=== PATIENT | male | born 1980 | race Hispanic/Latino ===

== ENCOUNTER 2018-08-04 22:50 | Emergency (ER) | payer SELFPAY ==
--- NOTE | 2018-08-05 00:21 | ED PDOC ---
HPI: General Adult Time Seen by Provider: 08/04/18 23:05 Chief Complaint (Nursing): Medical Clearance Chief Complaint (Provider): Medical Clearance History Per: Patient Additional Complaint(s): Nathaniel Hensley, a 38 year old male with past medical history of hypertension, sleep apnea and chronic back pain, was brought into the emergency department via police for medical clearance. Patient was caught trying to break into a garage and upon laying on the ground, stopped movement. He admitted to using meth yesterday but will not answer any more questions. Past Medical History Reviewed: Historical Data, Nursing Documentation, Vital Signs Vital Signs: Last Vital Signs Temp 98.2 F 08/04/18 22:52 Pulse 120 H 08/04/18 22:52 Resp 20 08/04/18 22:52 BP 177/93 H 08/04/18 22:52 Pulse Ox 99 08/04/18 22:52 - Medical History PMH: HTN, Chronic Pain (back from falling from scaffold) Other PMH: sleep apnea - Surgical History Surgical History: Back Surgery - Family History Family History: States: Unknown Family Hx - Social History Current smoker - smoking cessation education provided: No Alcohol: None Drugs: Denies - Allergies Allergies/Adverse Reactions: Allergies Allergy/AdvReac Type Severity Reaction Status Date / Time Unobtainable Allergy Verified 08/04/18 23:20 Review of Systems ROS Statement: Except As Marked, All Systems Reviewed And Found Negative Physical Exam - Reviewed Nursing Documentation Reviewed: Yes Vital Signs Reviewed: Yes - Physical Exam Appears: Positive for: Well, Non-toxic, No Acute Distress Head Exam: Positive for: ATRAUMATIC, NORMAL INSPECTION, NORMOCEPHALIC Skin: Positive for: Diaphoresis Neck: Positive for: Normal Cardiovascular/Chest: Positive for: Regular Rate, Rhythm Respiratory: Positive for: Normal Breath Sounds. Negative for: Respiratory Distress Gastrointestinal/Abdominal: Positive for: Normal Exam, Soft Comments: obese, jolting movement - Laboratory Results Result Diagrams: 08/05/18 00:28 08/05/18 00:28 - ECG O2 Sat by Pulse Oximetry: 99 (RA) Pulse Ox Interpretation: Normal Medical Decision Making Medical Decision Making: Time: 23:18 Initial Impression: sent for medical clearance pt has no complaints Initial Plan: --EKG --Acetaminophen stat --Alcohol serum --CMP --Drug screen --Salicylate --CBC w/differential --Glucose --urinalysis - medically cleared for criris eval. pulse improved/ now in upper 90s. Time: 3:06 - seen by elliot hernandez for discharge, dx adjustment disorder as per Dr. Darvin robles Time: 3:49 -Utox came back positive for marijuanaa and amph. counseled pt on stopping drugs. pt stable for dc. stable gait prior ot dc. Scribe Attestation: Documented by Karen Miramontes, acting as a scribe for Jesus Otero MD. Provider Scribe Attestation: All medical record entries made by the Scribe were at my direction and personally dictated by me. I have reviewed the chart and agree that the record accurately reflects my personal performance of the history, physical exam, medical decision making, and the department course for this patient. I have also personally directed, reviewed, and agree with the discharge instructions and disposition. Disposition - Clinical Impression Clinical Impression: Substance abuse, Adjustment disorder - Patient ED Disposition Is Patient to be Admitted: No Doctor Will See Patient In The: Hospital Counseled Patient/Family Regarding: Need For Followup - Disposition Disposition: Discharged/Transfer to Law Enforcement Disposition Time: 03:06 Condition: IMPROVED Additional Instructions: follow up with your doctor return to ED with any worsening or concerning symptoms you are medically and psychiatrically cleared for incarceration Instructions: Adjustment Disorder, Drug Abuse and Drug Addiction (DC), Marijuana Use and Addiction (DC) Forms: Barcoding (Tanzanian)
[2018-08-05 00:41] LABS: ACETAMINOPHEN < 10.0 ug/ml (10.0-30.0); SALICYLATE < 1.0 mg/dl
[2018-08-05 00:43] LABS: BASO # 0.1 K/uL (0.0-0.2); BASO % 0.5 % (0.0-2.0); EOS # 0.1 K/uL (0.0-0.7); EOS % 0.5 % (0.0-4.0); HEMOGLOBIN 16.1 g/dL (12.0-18.0); LYMPH # 2.4 K/uL (1.0-4.3); LYMPH % 21.9 % (20.0-40.0); MEAN CELL VOLUME 89.3 fl (80.0-94.0); MEAN CORPUSCULAR HGB CONC 33.6 g/dL (33.0-37.0); MEAN PLATELET VOLUME 10.4 fl (7.2-11.7); MONO # 0.6 K/uL (0.0-0.8); MONO % 5.8 % (0.0-10.0); NEUT % 71.3 % (50.0-75.0); NRBC % 0.1 % (0.0-0.0); RBC 5.36 Mil/uL (4.40-5.90); RED CELL DISTRIBUTION WIDTH 13.7 % (11.5-14.5); WHITE BLOOD COUNT 11.2 K/uL (4.8-10.8)
[2018-08-05 00:45] LABS: ALB/GLOB RATIO 1.3 (1.0-2.1); ALBUMIN 4.6 g/dL (3.5-5.0); ALT/SGPT 71 U/L (21-72); AST/SGOT 49 U/L (17-59); BLOOD UREA NITROGEN 11 mg/dl (9-20); CALCIUM 9.4 mg/dL (8.4-10.2); GFR NON-AFRICAN AMERICAN > 60
[2018-08-05] MEDS ORDERED: Potassium Chloride 20 mEq ER Tab PO ONE ×2 (01:14→01:20)
[2018-08-05] MEDS ORDERED: Sodium Chloride 0.9% 1,000 ML IV STA (01:41)
[2018-08-05 03:47] LABS: BARBITURATES, UR NEGATIVE (NEGATIVE); BENZODIAZEPINES, UR NEGATIVE (NEGATIVE); OPIATES, UR NEGATIVE (NEGATIVE); PHENCYCLIDINE, UR NEGATIVE (NEGATIVE)
[2018-08-05 04:03] LABS: SQUAMOUS EPITHIAL < 1 /hpf (0-5); URINE BACTERIA RARE (<OCC); URINE BILIRUBIN NEGATIVE (NEGATIVE); URINE BLOOD NEGATIVE (NEGATIVE); URINE CLARITY SLIGHTY-CLOUDY (Clear); URINE COLOR YELLOW (YELLOW); URINE GLUCOSE (UA) NEG (Normal); URINE HYALINE CAST 0-2 /hpf (0-2); URINE LEUKOCYTE ESTERASE NEG Leu/uL (Negative); URINE PROTEIN 30 mg/dL (NEGATIVE)
[2018-08-05 04:41] VITALS: BP 139/82; PULSE 97; RESP 19; TEMP 99.6
[2018-08-05 04:44] VITALS: O2SAT 99
== END 2018-08-05 04:25 ==
LOC: H.ER 22:50
DX: F19.10 Other psychoactive substance abuse, uncomplicated (principal); F43.20 Adjustment disorder, unspecified; G47.30 Sleep apnea, unspecified; G89.29 Other chronic pain; I10 Essential (primary) hypertension
CPT/HCPCS: 80053; 81003; 82948; 85025; 96360; 99282; G0480; J7030

== ENCOUNTER 2018-08-05 14:02 | Emergency (ER) | payer SELFPAY ==
--- NOTE | 2018-08-05 15:31 | ED PDOC ---
HPI: General Adult Time Seen by Provider: 08/05/18 14:33 Chief Complaint (Nursing): Medical Clearance Chief Complaint (Provider): medical clearance History Per: Patient History/Exam Limitations: no limitations Current Symptoms Are (Timing): Still Present Recently: Treated By A Physician Additional Complaint(s): 38yo male under police custody here for repeat medical clearance, blood pressure elevated in [facility]. Patient admits to long history of HTN, prior took lisinopril and HCTZ but hasnt taken in >1 year. Denies complaints of chest pain, headache, SOB, edema or urinary changes. Per police sent to ER from [facility] after seeing RN in [facility] and BP elevated. prior chart reviewed seen saturday for clearance had bloodwork and utox performed showing amphetamines and THC. 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) Denies: Diabetes, Hepatitis, HIV, Seizures, Sexually Transmitted Disease - Surgical History Surgical History: Back Surgery - Family History Family History: States: Unknown Family Hx - Allergies Allergies/Adverse Reactions: Allergies Allergy/AdvReac Type Severity Reaction Status Date / Time No Known Allergies Allergy Verified 08/05/18 14:05 Review of Systems ROS Statement: Except As Marked, All Systems Reviewed And Found Negative Constitutional: Negative for: Fever Cardiovascular: Negative for: Chest Pain Respiratory: Negative for: Shortness of Breath Gastrointestinal: Negative for: Abdominal Pain Genitourinary Male: Negative for: Dysuria Musculoskeletal: Negative for: Neck Pain Skin: Negative for: Rash, Lesions Neurological: Negative for: Weakness, Numbness Psych: Negative for: Anxiety Physical Exam - Reviewed Nursing Documentation Reviewed: Yes Vital Signs Reviewed: Yes - Physical Exam Appears: Positive for: Non-toxic (obese poor hygiene), No Acute Distress Head Exam: Positive for: ATRAUMATIC, NORMAL INSPECTION, NORMOCEPHALIC Skin: Positive for: Normal Color, Warm, DRY Eye Exam: Positive for: EOMI, Normal appearance, PERRL ENT: Positive for: Normal ENT Inspection Neck: Positive for: Normal, Painless ROM Cardiovascular/Chest: Positive for: Regular Rate, Rhythm Respiratory: Positive for: CNT, Normal Breath Sounds Gastrointestinal/Abdominal: Positive for: Normal Exam, Soft. Negative for: Tenderness Back: Positive for: Normal Inspection Extremity: Positive for: Normal ROM Neurologic/Psych: Positive for: Alert, Oriented. Negative for: Motor/Sensory Deficits - ECG O2 Sat by Pulse Oximetry: 99 Medical Decision Making Medical Decision Making: pt refused EKG bloodwork reviewed from prior visit Initiate clonidine 0.2mg and will monitor BP Disposition - Disposition
[2018-08-05 17:15] VITALS: RESP 18
[2018-08-05 17:59] VITALS: BP 155/98
[2018-08-05 18:25] VITALS: PULSE 83; TEMP 98.2; O2SAT 97
== END 2018-08-05 18:14 ==
LOC: H.ER 14:02
DX: I10 Essential (primary) hypertension (principal); G89.29 Other chronic pain